=== PATIENT | male | born 1960 | race African-American/Black ===

== ENCOUNTER 2017-02-15 07:07 | Day surgery (SDC) | payer BC ==
[2017-02-14 12:20] VITALS: BMI 28.7
[2017-02-15] MEDS ORDERED: CEFAZOLIN/Water 2 GM/20 ML SYRINGE ONE (07:28)
[2017-02-15 08:01] LABS: Hematocrit 45.8 % (42.0-52.0); Mean Platelet Volume 7.2 fL (7.4-10.4); Red Blood Cell (RBC) Count 5.55 mill/uL (4.70-6.10); White Blood Cell (WBC) Count 5.1 thou/uL (4.8-10.8)
[2017-02-15] MEDS ORDERED: Diprivan 20 ML ONE (08:11)
[2017-02-15 08:18] LABS: Anion Gap 12 mmol/L (10-20); BUN (Urea Nitrogen) 14 mg/dL (8.4-25.7); Calc. Creatinine Clearance 127 mL/min (70-130); Calcium 9.6 mg/dL (7.8-10.44); Carbon Dioxide 26 mmol/L (22-29); Chloride 107 mmol/L (98-107); Estimated GFR-MDRD Greater than 90
[2017-02-15] MEDS ORDERED: Fentanyl 100 MCG/2 ML VIAL ONE (08:26)
[2017-02-15] MEDS ORDERED: diphenhydrAMINE 50 MG/ML VIAL ONE (08:35)
[2017-02-15] MEDS ORDERED: Lidocaine 1% PF 5 ML VIAL ONE (08:35)
[2017-02-15] MEDS ORDERED: Propofol 200 MG/20 ML VIAL ONE ×2 (08:35)
[2017-02-15] MEDS ORDERED: Dexamethasone 20 MG/5 ML VIAL ONE (08:35)
[2017-02-15] MEDS ORDERED: Metoclopramide HCl 10 MG/2 ML VIAL ONE (08:35)
[2017-02-15] MEDS ORDERED: Ondansetron HCl/PF 4 MG/2 ML Vial ONE (08:35)
--- NOTE | 2017-02-15 09:57 | OP ---
DATE OF PROCEDURE: 02/15/2017 PREOPERATIVE DIAGNOSIS: Left knee medial meniscus tear. POSTOPERATIVE DIAGNOSES: Left knee medial meniscus tear. PROCEDURE PERFORMED: Left knee arthroscopy with partial medial meniscectomy. SURGEON: Efren Fong M.D. GASOLINE PUMP MECHANIC: None. BLOOD LOSS: Minimal. COMPLICATIONS: None. ANESTHESIA: He had general anesthetic as well as a local block. He went to the recovery room in st able condition. INDICATIONS: This is a 56-year-old active male who has failed nonoperative treatment for left knee pain, swelling, and catching. DESCRIPTION OF THE PROCEDURE: After all appropriate consent forms were explained and signed, he was taken to the operating room at this time and was given general anesthetic. Once anesthesia was irineo ropriate, the tourniquet was placed on the left thigh and leg was placed in an arthroscopic leg hold er. It was then prepped and draped in standard surgical fashion. Limb was then prepped and draped in the standard surgical fashion. After prepping and draping the leg, the limb was exsanguinated an d the tourniquet was taken up to 300 mmHg. An inferolateral portal was established and the scope wa s placed into the knee joint. A needle localization technique was then used to make a medial workin g portal. Diagnostic arthroscopy commenced in the notch. ACL and PCL were evaluated and found to b e intact. The medial compartment was evaluated. The femur had some significant grade 2 chondromala abe on a large area, really just some crabmeat appearance. No significant unstable flaps were noted . The patient did have a complex large tear of the posterior horn and portion of the body of the me dial meniscus. There was a large ball of tissue that had flipped up on the posterior horn remnant a nd flipped backwards into the backspace of the knee. This was pulled out into the joint and partial medial meniscectomy was performed with the meniscal biter and shaver back to a stable base. Once t his was done, the lateral compartment was evaluated and no significant treatment was needed as the f emur, tibia, and meniscus were in good condition. The gutters were swept through and no loose dallas s were noted and the patellofemoral joint was evaluated. The patella overall was in pretty good con dition as well as the trochlea. There was an area that looked like it had grade 4 injury just off t he central trochlea and the medial aspect of the femoral condyle. This had already healed in with f ibrocartilaginous scar tissue and otherwise no other abnormalities were noted. At this time, scope was removed, knee was drained, and portals were closed with simple nylon stitch. Bulky sterile dres sing was applied and the tourniquet was let down. Toes pinked up nicely. The patient was awakened and taken to recovery in stable condition. All counts were correct at the end of the case and he di d receive preoperative IV antibiotics.
== END 2017-02-15 11:44 | disposition home or self-care (01) ==
LOC: SDC 07:07
PROVIDERS: ATTEND Orthopaedic Surgery
PROC: 0SBD4ZZ Excision of Left Knee Joint, Percutaneous Endoscopic Approach (ICD-10-PCS; principal; 2017-02-15)
DX: S83.232A Complex tear of medial meniscus, current injury, left knee, initial encounter (principal); I10 Essential (primary) hypertension; Z98.890 Other specified postprocedural states
CPT/HCPCS: 80048; 85027; G8978-GP-CI; G8979-GP-CI; G8980-GP-CI; J0131; J1100; J1200; J2001; J2405; J2704; J2765; J3010